=== PATIENT | male | born 1975 | race Caucasian/White ===

== ENCOUNTER 2018-10-26 20:53 | Inpatient (IN) | payer MEDICARE ==
[~2018-10-26] VITALS: Ht 177.8 cm; Wt 123.1 kg
[~2018-10-26 20:53] MED LIST: BENZ1TAB10 PO; LISI-622 PO; METF-960 PO; OMEG1CAP12 PO; SIMV-260 PO; SITA50 PO; TRAZ-220 PO; VITAD1000 PO
[2018-10-26 21:33] VITALS: BP 143/69
[2018-10-26] MEDS: ZOLPIDEM TARTRATE 10 MG TABLET PO PRN (22:02)
[2018-10-26 22:25] VITALS: BP 121/80
[2018-10-26] MEDS ORDERED: ALBUTEROL SULFATE HFA 90 MCG/PUFF 8 GM INHALER IH PRN (22:30)
[2018-10-26] MEDS ORDERED: IBUPROFEN 600 MG TABLET PO PRN (22:30)
[2018-10-26] MEDS ORDERED: ONDANSETRON HCL 4 MG TABLET PO PRN (22:30)
[2018-10-26] MEDS ORDERED: BACITRACIN 28.4 GM OINTMENT TP PRN (22:30)
[2018-10-26] MEDS ORDERED: BENZOCAINE/MENTHOL LOZENGE MM PRN (22:30)
[2018-10-26] MEDS ORDERED: ACETAMINOPHEN 325 MG TABLET PO PRN (22:30)
[2018-10-26] MEDS ORDERED: LOPERAMIDE HCL 2 MG CAPSULE PO PRN (22:30)
[2018-10-26] MEDS ORDERED: MAGNESIUM HYDROXIDE SUSPENSION 30 ML UDCUP PO PRN (22:30)
[2018-10-26] MEDS ORDERED: MAG HYDROX/AL HYDROX/SIMETH ES 30 ML SUSPENSION UDCUP PO PRN (22:30)
[2018-10-26] MEDS ORDERED: PETROLATUM,WHITE 28 GM JELLY TP PRN (22:30)
[2018-10-26] MEDS ORDERED: CloNIDine HCL 0.1 MG TABLET PO PRN (22:30)
[2018-10-27 00:31] VITALS: BP 124/78
[2018-10-27] MEDS: MetFORMIN HCL 500 MG TABLET PO SCH ×2 (07:10→16:44)
[2018-10-27 08:16] VITALS: BP 119/67
[2018-10-27] MEDS ORDERED: GLUCAGON,HUMAN RECOMBINANT 1 MG VIAL IM PRN (08:30)
[2018-10-27] MEDS ORDERED: INSULIN LISPRO 100 UNITS/ML SQ PRN (08:30)
[2018-10-27] MEDS: LORazepam 2 MG TABLET PO PRN ×4 (08:36→21:12)
[2018-10-27] MEDS: DOCUSATE SODIUM 100 MG CAPSULE PO SCH (08:36)
[2018-10-27] MEDS: LISINOPRIL 5 MG TABLET PO SCH (08:36)
[2018-10-27] MEDS: CHOLECALCIFEROL (VIT D3) 1,000 UNITS TABLET PO SCH (08:36)
[2018-10-27] MEDS: SitaGLIPtin PHOSPHATE 50 MG TABLET PO SCH (08:36)
[2018-10-27] MEDS: OMEPRAZOLE 20 MG CAPSULE PO SCH (08:36)
[2018-10-27] MEDS: OMEGA-3/DHA/EPA/FISH OIL 1,000 MG CAPSULE PO SCH (08:36)
[2018-10-27 08:39] LABS: BASOPHILS % (AUTO) 0.9 % (0.0-2.0); EOSINOPHILS % (AUTO) 1.4 % (1.0-6.0); HEMATOCRIT 39.5 % (41-53); HEMOGLOBIN 13.2 g/dL (13.5-17.5); LYMPHOCYTES # (AUTO) 2.4 K/uL (1.0-4.8); LYMPHOCYTES % (AUTO) 36.4 % (22.0-44.0); MEAN CORPUSCULAR HGB CONC 33.5 G/dL (31.0-37.0); MEAN CORPUSCULAR VOLUME 90 fL (80-100); MONOCYTES # (AUTO) 0.6 K/uL (0.1-1.0); MONOCYTES % (AUTO) 8.9 % (2.0-9.0); NEUTROPHILS # (AUTO) 3.4 K/uL (1.8-7.7); NEUTROPHILS % (AUTO) 52.4 % (40.0-70.0); PLATELET COUNT (AUTO) 316 K/uL (150-450); RED BLOOD CELL COUNT(AUTO) 4.42 MIL/uL (4.50-5.90); RED CELL DISTRIBUTION WIDTH 12.9 % (11.5-14.5)
[2018-10-27 09:06] LABS: ALANINE AMINOTRANSFERASE 21 U/L (12-78); ALBUMIN 3.3 g/dL (3.4-5.0); ALKALINE PHOSPHATASE 64 U/L (46-116); ANION GAP 7 mmol/L (8-16); ASPARTATE AMINOTRANSFERASE 12 U/L (15-37); BILIRUBIN,TOTAL 0.2 mg/dL (0.1-1.0); CALCIUM, TOTAL 9.2 mg/dL (8.8-10.5); CARBON DIOXIDE 29 mmol/L (22-29); CHLORIDE 106 mmol/L (98-107); CHOL/HDL RATIO 5.2 (4.2-7.3); CHOLESTEROL 197 mg/dL (131-200); CREATININE 0.88 mg/dL (0.60-1.30); GLOMERULAR FILTR. RATE CALC > 60 mL/min (>60); GLUCOSE,RANDOM 126 mg/dL (70-110); HDL CHOLESTEROL 38 mg/dL (40-60); LDL CHOL (CALC.) 118 mg/dL (0-130); SODIUM SERUM 142 mmol/L (136-145); THYROID STIMULATING HORMONE 2.96 uIU/mL (0.36-3.74); TOTAL PROTEIN, SERUM 6.2 g/dL (6.4-8.2); TRIGLYCERIDES 206 mg/dL (15-150); UREA NITROGEN, BLOOD 16 mg/dL (7-18)
[2018-10-27] MEDS: BENZTROPINE MESYLATE 1 MG TABLET PO SCH ×2 (10:03→21:11)
[2018-10-27 11:09] LABS: GLUCOMETER DEV NAME(LOC) BV3S.; GLUCOSE,POINT OF CARE 95 MG/DL (70-110)
[2018-10-27 16:00] VITALS: BP 112/67
[2018-10-27] MEDS: HALOPERIDOL 5 MG TABLET PO PRN (16:14)
[2018-10-27 17:29] LABS: GLUCOMETER DEV NAME(LOC) BV3S.; GLUCOSE,POINT OF CARE 125 MG/DL (70-110)
[2018-10-27] MEDS: SIMVASTATIN 20 MG TABLET PO SCH (21:11)
[2018-10-27] MEDS: ZOLPIDEM TARTRATE 10 MG TABLET PO PRN (21:11)
[2018-10-27] MEDS: TraZODone HCL 100 MG TABLET PO SCH (21:11)
[2018-10-27 21:29] LABS: GLUCOMETER DEV NAME(LOC) BV3S.; GLUCOSE,POINT OF CARE 114 MG/DL (70-110)
[2018-10-28 06:29] LABS: GLUCOMETER DEV NAME(LOC) BV3S.; GLUCOSE,POINT OF CARE 115 MG/DL (70-110)
[2018-10-28] MEDS: MetFORMIN HCL 500 MG TABLET PO SCH ×2 (06:36→16:25)
[2018-10-28 06:45] VITALS: BP 110/62
[2018-10-28 08:48] VITALS: BP 114/71
[2018-10-28] MEDS: CHOLECALCIFEROL (VIT D3) 1,000 UNITS TABLET PO SCH (08:52)
[2018-10-28] MEDS: OMEGA-3/DHA/EPA/FISH OIL 1,000 MG CAPSULE PO SCH (08:52)
[2018-10-28] MEDS: LISINOPRIL 5 MG TABLET PO SCH (08:52)
[2018-10-28] MEDS: SitaGLIPtin PHOSPHATE 50 MG TABLET PO SCH (08:52)
[2018-10-28] MEDS: OMEPRAZOLE 20 MG CAPSULE PO SCH (08:53)
[2018-10-28] MEDS: DOCUSATE SODIUM 100 MG CAPSULE PO SCH (08:53)
[2018-10-28] MEDS: BENZTROPINE MESYLATE 1 MG TABLET PO SCH ×2 (08:53→21:09)
[2018-10-28] MEDS: LORazepam 2 MG TABLET PO PRN ×4 (08:54→21:18)
[2018-10-28 12:19] LABS: GLUCOMETER DEV NAME(LOC) BV3S.; GLUCOSE,POINT OF CARE 88 MG/DL (70-110)
[2018-10-28 16:00] VITALS: BP 117/69
[2018-10-28 17:44] LABS: GLUCOMETER DEV NAME(LOC) BV3S.; GLUCOSE,POINT OF CARE 108 MG/DL (70-110)
[2018-10-28] MEDS: ZOLPIDEM TARTRATE 10 MG TABLET PO PRN (21:09)
[2018-10-28] MEDS: SIMVASTATIN 20 MG TABLET PO SCH (21:09)
[2018-10-28] MEDS: TraZODone HCL 100 MG TABLET PO SCH (21:09)
[2018-10-28 21:14] LABS: GLUCOMETER DEV NAME(LOC) BV3S.; GLUCOSE,POINT OF CARE 124 MG/DL (70-110)
[2018-10-29 06:15] LABS: GLUCOMETER DEV NAME(LOC) BV3S.; GLUCOSE,POINT OF CARE 111 MG/DL (70-110)
[2018-10-29] MEDS: MetFORMIN HCL 500 MG TABLET PO SCH ×2 (06:23→16:19)
[2018-10-29 06:27] VITALS: BP 114/75
[2018-10-29 08:27] VITALS: BP 119/63
[2018-10-29] MEDS: CHOLECALCIFEROL (VIT D3) 1,000 UNITS TABLET PO SCH (09:12)
[2018-10-29] MEDS: LISINOPRIL 5 MG TABLET PO SCH (09:12)
[2018-10-29] MEDS: OMEPRAZOLE 20 MG CAPSULE PO SCH (09:12)
[2018-10-29] MEDS: DOCUSATE SODIUM 100 MG CAPSULE PO SCH (09:12)
[2018-10-29] MEDS: OMEGA-3/DHA/EPA/FISH OIL 1,000 MG CAPSULE PO SCH (09:12)
[2018-10-29] MEDS: BENZTROPINE MESYLATE 1 MG TABLET PO SCH ×2 (09:13→20:49)
[2018-10-29] MEDS: SitaGLIPtin PHOSPHATE 50 MG TABLET PO SCH (09:13)
[2018-10-29] MEDS: LORazepam 2 MG TABLET PO PRN ×3 (10:12→18:26)
[2018-10-29] MEDS: DIVALPROEX SODIUM 500 MG ER TABLET PO SCH (10:14)
[2018-10-29 12:38] LABS: GLUCOMETER DEV NAME(LOC) BV3S.; GLUCOSE,POINT OF CARE 101 MG/DL (70-110)
[2018-10-29] MEDS: HALOPERIDOL 5 MG TABLET PO PRN (16:19)
[2018-10-29 16:21] VITALS: BP 131/80
[2018-10-29 19:14] LABS: GLUCOMETER DEV NAME(LOC) BV3S.; GLUCOSE,POINT OF CARE 132 MG/DL (70-110)
[2018-10-29] MEDS: ZOLPIDEM TARTRATE 10 MG TABLET PO PRN (20:49)
[2018-10-29] MEDS: TraZODone HCL 100 MG TABLET PO SCH (20:49)
[2018-10-29] MEDS: SIMVASTATIN 20 MG TABLET PO SCH (20:49)
[2018-10-29 20:59] LABS: GLUCOMETER DEV NAME(LOC) BV3S.; GLUCOSE,POINT OF CARE 112 MG/DL (70-110)
[2018-10-30 06:04] VITALS: BP 128/78
[2018-10-30 06:09] LABS: GLUCOMETER DEV NAME(LOC) BV3S.; GLUCOSE,POINT OF CARE 122 MG/DL (70-110)
[2018-10-30] MEDS: MetFORMIN HCL 500 MG TABLET PO SCH ×2 (06:20→16:37)
[2018-10-30 08:18] VITALS: BP 125/61
[2018-10-30] MEDS: LORazepam 2 MG TABLET PO PRN ×3 (09:27→20:30)
[2018-10-30] MEDS: OMEPRAZOLE 20 MG CAPSULE PO SCH (09:46)
[2018-10-30] MEDS: SitaGLIPtin PHOSPHATE 50 MG TABLET PO SCH (09:46)
[2018-10-30] MEDS: DIVALPROEX SODIUM 500 MG ER TABLET PO SCH (09:46)
[2018-10-30] MEDS: BENZTROPINE MESYLATE 1 MG TABLET PO SCH ×2 (09:46→20:30)
[2018-10-30] MEDS: LISINOPRIL 5 MG TABLET PO SCH (09:46)
[2018-10-30] MEDS: DOCUSATE SODIUM 100 MG CAPSULE PO SCH (09:46)
[2018-10-30] MEDS: CHOLECALCIFEROL (VIT D3) 1,000 UNITS TABLET PO SCH (09:46)
[2018-10-30] MEDS: OMEGA-3/DHA/EPA/FISH OIL 1,000 MG CAPSULE PO SCH (09:47)
[2018-10-30 12:00] LABS: GLUCOMETER DEV NAME(LOC) BV3S.; GLUCOSE,POINT OF CARE 112 MG/DL (70-110)
[2018-10-30] MEDS: HALOPERIDOL 5 MG TABLET PO PRN (13:34)
[2018-10-30 16:15] LABS: GLUCOMETER DEV NAME(LOC) BV3S.; GLUCOSE,POINT OF CARE 130 MG/DL (70-110)
[2018-10-30 16:50] VITALS: BP 118/70
[2018-10-30 20:19] LABS: GLUCOMETER DEV NAME(LOC) BV3S.; GLUCOSE,POINT OF CARE 149 MG/DL (70-110)
[2018-10-30] MEDS: ZOLPIDEM TARTRATE 10 MG TABLET PO PRN (20:30)
[2018-10-30] MEDS: TraZODone HCL 100 MG TABLET PO SCH (20:30)
[2018-10-30] MEDS: SIMVASTATIN 20 MG TABLET PO SCH (20:30)
[2018-10-31 02:55] VITALS: BP 122/75
[2018-10-31 06:14] LABS: GLUCOMETER DEV NAME(LOC) BV3S.; GLUCOSE,POINT OF CARE 135 MG/DL (70-110)
[2018-10-31] MEDS: MetFORMIN HCL 500 MG TABLET PO SCH ×2 (06:34→16:49)
[2018-10-31 08:15] VITALS: BP 118/57
[2018-10-31 08:25] LABS: APPEARANCE,URINE CLEAR (CLEAR); BILIRUBIN,URINE NEGATIVE (NEGATIVE); GLUCOSE, URINE (UA) NEGATIVE (NEGATIVE); KETONES,URINE NEGATIVE (NEGATIVE); LEUKOCYTE ESTERASE ,URINE NEGATIVE (NEGATIVE); NITRATE,URINE NEGATIVE (NEGATIVE); OCCULT BLOOD,URINE NEGATIVE (NEGATIVE); PH,URINE 6.5 (5.0-8.0); PROTEIN,URINE NEGATIVE (NEGATIVE); UROBILINOGEN,URINE 0.2 mg/dL (<=1.0)
[2018-10-31 08:27] LABS: AMPHET/METH SCREEN,URINE NEGATIVE (NEGATIVE); BARBITURATE SCREEN, URINE NEGATIVE (NEGATIVE); BENZODIAZEPINES SCREEN,URINE NEGATIVE (NEGATIVE); CANNABINOID SCREEN,URINE NEGATIVE (NEGATIVE); COCAINE SCREEN,URINE NEGATIVE (NEGATIVE); METHADONE SCREEN, URINE NEGATIVE (NEGATIVE); OPIATE SCREEN,URINE NEGATIVE (NEGATIVE)
[2018-10-31 08:29] LABS: PHENCYCLIDINE SCREEN,URINE NEGATIVE (NEGATIVE)
[2018-10-31] MEDS: DIVALPROEX SODIUM 500 MG ER TABLET PO SCH (08:53)
[2018-10-31] MEDS: LISINOPRIL 5 MG TABLET PO SCH (08:53)
[2018-10-31] MEDS: LORazepam 2 MG TABLET PO PRN ×3 (08:53→21:03)
[2018-10-31] MEDS: DOCUSATE SODIUM 100 MG CAPSULE PO SCH (08:53)
[2018-10-31] MEDS: CHOLECALCIFEROL (VIT D3) 1,000 UNITS TABLET PO SCH (08:53)
[2018-10-31] MEDS: SitaGLIPtin PHOSPHATE 50 MG TABLET PO SCH (08:54)
[2018-10-31] MEDS: BENZTROPINE MESYLATE 1 MG TABLET PO SCH ×2 (08:54→20:22)
[2018-10-31] MEDS: OMEGA-3/DHA/EPA/FISH OIL 1,000 MG CAPSULE PO SCH (08:54)
[2018-10-31] MEDS: OMEPRAZOLE 20 MG CAPSULE PO SCH (08:54)
[2018-10-31 11:39] LABS: GLUCOMETER DEV NAME(LOC) BV3S.; GLUCOSE,POINT OF CARE 108 MG/DL (70-110)
[2018-10-31 16:14] LABS: GLUCOMETER DEV NAME(LOC) BV3S.; GLUCOSE,POINT OF CARE 127 MG/DL (70-110)
[2018-10-31 16:21] VITALS: BP 122/70
[2018-10-31] MEDS: HALOPERIDOL 5 MG TABLET PO PRN (16:49)
[2018-10-31 20:19] LABS: GLUCOMETER DEV NAME(LOC) BV3S.; GLUCOSE,POINT OF CARE 132 MG/DL (70-110)
[2018-10-31] MEDS: ZOLPIDEM TARTRATE 10 MG TABLET PO PRN (20:22)
[2018-10-31] MEDS: TraZODone HCL 100 MG TABLET PO SCH (20:22)
[2018-10-31] MEDS: SIMVASTATIN 20 MG TABLET PO SCH (20:22)
[2018-11-01 05:12] VITALS: BP 118/74
[2018-11-01] MEDS: MetFORMIN HCL 500 MG TABLET PO SCH ×2 (06:13→16:59)
[2018-11-01 06:19] LABS: GLUCOMETER DEV NAME(LOC) BV3S.; GLUCOSE,POINT OF CARE 121 MG/DL (70-110)
[2018-11-01] MEDS ORDERED: MULTIVITAMINS WITH IRON TABLET PO SCH ×3 (07:30→09:00)
[2018-11-01 08:28] VITALS: BP 132/75
[2018-11-01] MEDS: OMEPRAZOLE 20 MG CAPSULE PO SCH (09:39)
[2018-11-01] MEDS: LISINOPRIL 5 MG TABLET PO SCH (09:40)
[2018-11-01] MEDS: BENZTROPINE MESYLATE 1 MG TABLET PO SCH ×2 (09:40→21:09)
[2018-11-01] MEDS: DIVALPROEX SODIUM 500 MG ER TABLET PO SCH (09:40)
[2018-11-01] MEDS: CHOLECALCIFEROL (VIT D3) 1,000 UNITS TABLET PO SCH (09:40)
[2018-11-01] MEDS: OMEGA-3/DHA/EPA/FISH OIL 1,000 MG CAPSULE PO SCH (09:40)
[2018-11-01] MEDS: SitaGLIPtin PHOSPHATE 50 MG TABLET PO SCH (09:40)
[2018-11-01] MEDS: DOCUSATE SODIUM 100 MG CAPSULE PO SCH (09:40)
[2018-11-01] MEDS: LORazepam 2 MG TABLET PO PRN ×3 (11:07→21:09)
[2018-11-01 11:34] LABS: GLUCOMETER DEV NAME(LOC) BV3S.; GLUCOSE,POINT OF CARE 116 MG/DL (70-110)
[2018-11-01 16:00] VITALS: BP 118/70
[2018-11-01 17:15] LABS: GLUCOMETER DEV NAME(LOC) BV3S.; GLUCOSE,POINT OF CARE 140 MG/DL (70-110)
[2018-11-01] MEDS: ZOLPIDEM TARTRATE 10 MG TABLET PO PRN (21:09)
[2018-11-01] MEDS: TraZODone HCL 100 MG TABLET PO SCH (21:09)
[2018-11-01] MEDS: SIMVASTATIN 20 MG TABLET PO SCH (21:09)
[2018-11-02 06:00] LABS: GLUCOMETER DEV NAME(LOC) BV3S.; GLUCOSE,POINT OF CARE 104 MG/DL (70-110)
[2018-11-02] MEDS: MetFORMIN HCL 500 MG TABLET PO SCH (06:04)
[2018-11-02 07:07] VITALS: BP 113/74
[2018-11-02 08:00] VITALS: BP 114/69
[2018-11-02] MEDS ORDERED: DIVA500T52 PO (08:12)
== END 2018-11-02 10:25 | disposition home or self-care (01) | DRG 885 ==
LOC: B3A 21:11
PROVIDERS: ADMIT Psychiatry & Neurology Psychiatry; ATTEND Psychiatry & Neurology Psychiatry
DX: F20.0 Paranoid schizophrenia (principal); R45.851 Suicidal ideations; E11.65 Type 2 diabetes mellitus with hyperglycemia; E55.9 Vitamin D deficiency, unspecified; E66.9 Obesity, unspecified; E78.5 Hyperlipidemia, unspecified; F12.90 Cannabis use, unspecified, uncomplicated; F14.90 Cocaine use, unspecified, uncomplicated; G47.00 Insomnia, unspecified; I10 Essential (primary) hypertension; J44.9 Chronic obstructive pulmonary disease, unspecified; K59.00 Constipation, unspecified; Z87.891 Personal history of nicotine dependence; Z68.38 Body mass index [BMI] 38.0-38.9, adult; Z72.89 Other problems related to lifestyle; Z79.899 Other long term (current) drug therapy; Z79.84 Long term (current) use of oral hypoglycemic drugs
CPT/HCPCS: 80307; 84439; 84443

== ENCOUNTER 2020-09-30 21:42 | Emergency (ER) | payer MEDICARE ==
[~2020-09-30] VITALS: Ht 177.8 cm; Wt 136.4 kg
[~2020-09-30 21:42] MED LIST changes: +DIVA-80 PO; -LISI-622 PO; +LISI-809 PO; -OMEG1CAP12 PO; -TRAZ-220 PO; +TRAZ-257 PO; -VITAD1000 PO
[2020-09-30 22:28] LABS: BASOPHILS % (AUTO) 0.7 % (0.0-2.0); EOSINOPHILS % (AUTO) 1.4 % (1.0-6.0); HEMATOCRIT 37.6 % (41-53); HEMOGLOBIN 12.7 g/dL (13.5-17.5); LYMPHOCYTES # (AUTO) 2.2 K/uL (1.0-4.8); LYMPHOCYTES % (AUTO) 29.9 % (22.0-44.0); MEAN CORPUSCULAR HEMOGLOBIN 29.8 pg (26.0-34.0); MEAN CORPUSCULAR HGB CONC 33.8 G/dL (31.0-37.0); MEAN CORPUSCULAR VOLUME 88 fL (80-100); MONOCYTES # (AUTO) 0.7 K/uL (0.1-1.0); MONOCYTES % (AUTO) 10.2 % (2.0-9.0); NEUTROPHILS # (AUTO) 4.2 K/uL (1.8-7.7); NEUTROPHILS % (AUTO) 57.8 % (40.0-70.0); PLATELET COUNT (AUTO) 300 K/uL (150-450); RED BLOOD CELL COUNT(AUTO) 4.27 MIL/uL (4.50-5.90); RED CELL DISTRIBUTION WIDTH 12.6 % (11.5-14.5)
[2020-09-30 22:37] LABS: ANION GAP 7 mmol/L (8-16); CALCIUM, TOTAL 8.7 mg/dL (8.8-10.5); CARBON DIOXIDE 27 mmol/L (22-29); CHLORIDE 99 mmol/L (98-107); CREATININE 1.03 mg/dL (0.60-1.30); GLOMERULAR FILTR. RATE CALC > 60 mL/min (>60); GLUCOSE,RANDOM 89 mg/dL (70-110); POTASSIUM 3.4 mmol/L (3.5-5.1); SODIUM SERUM 133 mmol/L (136-145); UREA NITROGEN, BLOOD 12 mg/dL (7-18)
[2020-09-30 22:42] LABS: ALANINE AMINOTRANSFERASE 28 U/L (12-78); ALBUMIN 3.9 g/dL (3.4-5.0); ALKALINE PHOSPHATASE 77 U/L (46-116); ASPARTATE AMINOTRANSFERASE 17 U/L (15-37); BILIRUBIN,TOTAL 0.2 mg/dL (0.1-1.0); TOTAL PROTEIN, SERUM 6.9 g/dL (6.4-8.2)
[2020-10-01] MEDS ORDERED: HALOPERIDOL 5 MG TABLET PO ONE (00:15)
[2020-10-01] MEDS ORDERED: LORazepam 1 MG TABLET PO ONE (00:15)
[2020-10-01] MEDS ORDERED: POTASSIUM CHLORIDE 20 MEQ ER TABLET PO ONE (01:45)
[2020-10-01 02:16] VITALS: BP 133/87
== END 2020-10-01 03:49 | disposition home or self-care (01) ==
LOC: EMS 21:45
DX: F22 Delusional disorders (principal); E87.6 Hypokalemia; F31.9 Bipolar disorder, unspecified; E11.9 Type 2 diabetes mellitus without complications; F20.9 Schizophrenia, unspecified; Z79.84 Long term (current) use of oral hypoglycemic drugs; Z79.899 Other long term (current) drug therapy
CPT/HCPCS: 80053; 85025; 99284; G0480